=== PATIENT | male | born 1985 | race Caucasian/White ===

== ENCOUNTER 2023-04-13 01:21 | Emergency (ER) | payer MEDICAID, OTHER ==
[~2023-04-13] VITALS: Ht 160 cm; Wt 118.0 kg
[2023-04-13 01:57] VITALS: BP 151/91; PULSE 82; RESP 16; TEMP 98.2; O2SAT 98
[2023-04-13] MEDS ORDERED: CLIN-26 MT (03:04)
[2023-04-13] MEDS ORDERED: CLINDAMYCIN HCL 150MG CAPSULE PO SCH (06:00)
== END 2023-04-13 03:49 | disposition home or self-care (01) ==
LOC: ER 01:21
DX: L03.213 Periorbital cellulitis (principal)
CPT/HCPCS: 99283